=== PATIENT | male | born 1960 | race Caucasian/White ===

== ENCOUNTER 2025-02-24 10:58 | Emergency (ER) | payer MEDICAID ==
[~2025-02-24] VITALS: Ht 177.8 cm; Wt 133.8 kg
[2025-02-24] MEDS ORDERED: PRED5 (11:07)
[2025-02-24] MEDS ORDERED: RISP2 PO (11:07)
[2025-02-24] MEDS ORDERED: Isosorbide Mono30 MG PO (11:08)
[2025-02-24] MEDS ORDERED: OLAN10 PO (11:08)
[2025-02-24] MEDS ORDERED: LOSA50 PO (11:08)
[2025-02-24] MEDS ORDERED: ZOLP10 PO (11:08)
[2025-02-24] MEDS ORDERED: ALBU90OI (11:09)
[2025-02-24] MEDS ORDERED: TAMS.4ER PO (11:09)
[2025-02-24] MEDS ORDERED: AMLO10 PO (11:09)
[2025-02-24] MEDS ORDERED: HYDCHL25 PO (11:09)
[2025-02-24 11:46] LABS: CORONAVIRUS COVID-19 AG Negative (NEGATIVE)
== END 2025-02-24 12:30 | disposition home or self-care (01) ==
LOC: ER 10:58
PROVIDERS: Physician Assistant
DX: J06.9 Acute upper respiratory infection, unspecified (principal); I10 Essential (primary) hypertension; E11.9 Type 2 diabetes mellitus without complications; F17.200 Nicotine dependence, unspecified, uncomplicated; Z79.52 Long term (current) use of systemic steroids; Z79.899 Other long term (current) drug therapy
CPT/HCPCS: 87428-QW; 99283